=== PATIENT | female | born 1965 | race Caucasian/White ===

== ENCOUNTER 2024-10-19 08:20 | Emergency (ER) | payer OTHER ==
[2024-10-19 08:31] VITALS: BP 114/62; PULSE 57; RESP 16; TEMP 97.5; BMI 19.5
== END 2024-10-19 08:59 | disposition home or self-care (01) ==
LOC: FER 08:20
DX: Z48.02 Encounter for removal of sutures (principal)
CPT/HCPCS: 99281-25